=== PATIENT | male | born 1995 | race Caucasian/White ===

== ENCOUNTER 2019-06-21 01:36 | Observation (INO) ==
[2019-06-21] MEDS ORDERED: SODIUM CHLORIDE 0.9% 1000ML 2,000 ML IV ONE (01:50)
[2019-06-21] MEDS ORDERED: KETOROLAC 30 MG/ML VIAL IV STA (01:50)
[2019-06-21] MEDS ORDERED: ONDANSETRON INJ 2 MG/ML 2 ML VIAL IV STA (01:50)
[2019-06-21] MEDS ORDERED: DEXAMETHASONE SOD INJ 4 MG/ML VIAL IV STA (01:52)
[2019-06-21] MEDS ORDERED: DEXAMETHASONE **PF** INJ 10 MG/ML VIAL ONE (02:00)
[2019-06-21 02:14] LABS: Basophils # (auto) 0.03 K/uL (0-0.2); Basophils % (auto) 0.1 %; Eosinophils # (auto) 0.03 K/uL (0-0.5); Eosinophils % (auto) 0.1 %; Hematocrit (blood only) 40.9 % (42-52); Hemoglobin 14.3 g/dL (14.0-18.0); Immature Granulocytes # (auto) 0.09 K/uL (0.00-0.02); Immature Granulocytes % (auto) 0.4 %; Lymphocytes # (auto) 1.17 K/uL (1.2-3.4); Lymphocytes % (auto) 5.5 %; Mean Corpuscular Hemoglobin 30.2 pg (25-34); Mean Corpuscular Volume 86.3 fL (80-100); Mean Platelet Volume 9.3 fL (7.4-10.4); Monocytes # (auto) 1.34 K/uL (0.11-0.59); Monocytes % (auto) 6.3 %; Neutrophils # (auto) 18.62 K/uL (1.4-6.5); Neutrophils % (auto) 87.6 %; Platelet Count 268 K/uL (130-400); RDW Coefficient of Variation 13.7 % (11.5-14.5); RDW Standard Deviation 43.5 fL (36.4-46.3); Red Blood Count 4.74 M/uL (4.7-6.1); White Blood Count 21.28 K/uL (4.8-10.8)
[2019-06-21] MEDS ORDERED: ACETAMINOPHEN 500 MG TAB PO STA (02:16)
[2019-06-21 02:30] LABS: BUN Creatinine Ratio 13.2 (10-20); Calcium 8.8 mg/dl (8.5-10.1); Creatinine Clr Calc Pharmacy 128.5 ml/min; Est GFR (African American) 108.3; Est GFR (Non-African American) 93.4; Potassium 3.3 mmol/L (3.5-5.1)
[2019-06-21 02:58] LABS: Appearance Urine Clear (Clear); Bilirubin Urine Negative (Negative); Blood Urine Negative (Negative); Color Urine Dark Yellow; Glucose Urine UA Negative (Negative); Ketones Urine 1+ (Negative); Leukocyte Esterase Urine Negative (Negative); Nitrite Urine Negative (Negative); Protein Urine Negative (Negative); Specific Gravity Urine 1.036 (1.000-1.030); Urobilinogen Urine Negative (Negative)
[2019-06-21 03:03] LABS: C Reactive Protein 2.18 mg/dl (0-0.29)
[2019-06-21] MEDS ORDERED: SODIUM CHLORIDE 0.9% 1000ML 1,000 ML IV SCH (04:45)
--- NOTE | 2019-06-21 05:18 | History & Physical Report ---
Date of Service June 21, 2019 Assessment & Plan (1) Pharyngitis: Patient with acute onset sore throat, fever/chills/rigors. Posterior pharynx is erythematous and edematous on exam. Rapid strep is negative. Patient has had mono in the past. He was given Dexamethasone and Toradol in the ER which should help acute pain -Symptomatic treatment with Tylenol, IVF, lozenges -Check Monospot Present on Admission?: Yes (2) Viral syndrome: As above. Suspect acute viral pharyngitis -Follow cultures obtained in the ER -Symptomatic treatement as above Present on Admission?: Yes (3) Leukocytosis: Patient with significant leukocytosis, WBC=21.28 with neutrophil predominance and bands as well as elevated monocytes. Most likely acute reaction in setting of infection. No obvious bacterial source. -Symptomatic management as above -Patient should followup with PCP after discharge for repeat CBC F/E/N - NSS at 80mL/hr with 40mEq KCL, K repletion, regular diet Ppx - low risk for DVT Code - Full Dispo - Obs to medical floor History of Present Illness Chief Complaint: feeling ill Primary Care Provider: NO PCP Don Cuba is a 23yo C male with no significant past medical or surgical history presenting with ill feeling, rigors and sore throat. His symptoms began acutely around 15:00 yesterday 06/20/19 with a sore throat and feeling a little "off". He was travelling to [place] to see a show. He took Ibuprofen and DayQuil with minimal improvement. Symptoms progressed throughout the evening - patient could't focus, felt "hazy", developed chills and rigors. He also felt very tired, nausea with one episode of non-bloody/non-bilious emesis. He has a faint dry cough. Denies chest pain/palpitations/SOB/wheeze. Denies abdominal pain/diarrhea/constipation. Denies dysuria/flank pain. Denies rhinorrhea/ear pain. ER workup revealed a marked leukocytosis - WBC=21.28, neutrophil predominance with bands. Patient was to be discharged home, ER attending spoke with patient's mother in [place] who requested that her son be kept for observation as she did not feel comfortable with him going home. ER Course: Dexamethasone 10mg, Zofran 4mg, Tylenol 1000mg, NSS x 2L then at 125mL Allergies Allergy/AdvReac Type Severity Reaction Status Date / Time No Known Allergies Allergy Unverified 06/21/19 02:05 Home Medications Home Medications Medication Instructions Recorded Confirmed Type No Known Home Medications 06/21/19 06/21/19 History Past Med/Surg History Medical History No pertinent past medical history Surgical History No pertinent past surgical history Family History (Updated 06/21/19 @ 05:07 by Radha Yan DO) Other No significant family history Social History (Updated 06/21/19 @ 05:08 by Radha Yan DO) Feels Safe at Home: Yes Smoking Status: Current some day smoker Tobacco Type: e-cigarettes ; Hx Alcohol Use: Yes Alcohol Intake Frequency: Holidays/Special Occasions Hx Substance Use: No Review of Systems Review of Systems: All systems reviewed & are unremarkable except as noted in HPI & below +sore throat +Headache +blurry vision +cough Physical Exam Physical Exam: General: patient resting comfortably, NAD, non-toxic in appearance, AA&O x 4 Skin: warm, dry, intact, no rashes or lesions HEENT: NC/AT, PERRL, EOMI, anicteric sclera, conjunctiva without injection, external ear normal to inspection and nontender, TM pearly with good cone of light, no evidence of infection, no mastoid tenderness, nares patent, moist mucus membranes, dentition intact, posterior pharynx with erythema, tonsillar enlargement bilaterally, no exudates, neck supple, trachea midline, no LAD, no thyromegaly, no JVD Heart: +S1/S2, regular with significant respiratory variation, no m/r/g Lungs: equal air entry bilaterally, no rales/rhonchi/wheezes Abd: +BS, soft, NT/ND, no masses/organomegaly/ascites Ext: warm, 2+ pulses in UE/LE bilaterally, no clubbing/cyanosis or edema Neuro: nonfocal, patient AA&O x 4, speech intact, no facial droop, moving all extremities on command with equal strength 5/5 Results & Data Vital Signs (Past 12 Hours) Vital Signs Temp Pulse Pulse Resp BP BP Pulse Ox 06/21/19 04:32 38.0 C H 91 H 18 113/56 L 97 06/21/19 03:42 38.1 C H 96 H 20 107/50 L 97 06/21/19 02:10 39.5 C H 06/21/19 01:38 37.2 C 110 H 20 111/64 99 Laboratory Results Lab Results 06/21/19 06/21/19 06/21/19 Range/Units 02:01 02:01 02:02 WBC 21.28 H (4.8-10.8) K/uL RBC 4.74 (4.7-6.1) M/uL Hgb 14.3 (14.0-18.0) g/dL Hct 40.9 L (42-52) % MCV 86.3 (80-100) fL MCH 30.2 (25-34) pg MCHC 35.0 (32-36) g/dL RDW Std Deviation 43.5 (36.4-46.3) fL RDW Coeff of Liliya 13.7 (11.5-14.5) % Plt Count 268 (130-400) K/uL MPV 9.3 (7.4-10.4) fL Immature Gran % (Auto) 0.4 % Neut % (Auto) 87.6 % Lymph % (Auto) 5.5 % [place] % (Auto) 6.3 % Eos % (Auto) 0.1 % Baso % (Auto) 0.1 % Immature Gran # (Auto) 0.09 H (0.00-0.02) K/uL Neut # (Auto) 18.62 H (1.4-6.5) K/uL Lymph # (Auto) 1.17 L (1.2-3.4) K/uL [place] # (Auto) 1.34 H (0.11-0.59) K/uL Eos # (Auto) 0.03 (0-0.5) K/uL Baso # (Auto) 0.03 (0-0.2) K/uL Sodium 138 (136-145) mmol/L Potassium 3.3 L (3.5-5.1) mmol/L Chloride 106 (98-107) mmol/L Carbon Dioxide 28 (21-32) mmol/L Anion Gap 4.0 (3-11) BUN 15 (7-18) mg/dl Creatinine 1.12 (0.6-1.4) mg/dl Est Cr Clr Drug Dosing 128.5 ml/min Est GFR ( Amer) 108.3 Est GFR (Non-Af Amer) 93.4 BUN/Creatinine Ratio 13.2 (10-20) Glucose 120 H (70-99) mg/dl Lactate (0.4-2.0) mmol/L Calcium 8.8 (8.5-10.1) mg/dl C-Reactive Protein 2.18 H (0-0.29) mg/dl Procalcitonin (0-0.5) ng/ml Urine Color Urine Appearance (Clear) Urine pH (4.5-7.5) Ur Specific [place] (1.000-1.030) Urine Protein (Negative) Urine Glucose (UA) (Negative) Urine Ketones (Negative) Urine Blood (Negative) Urine Nitrite (Negative) Urine Bilirubin (Negative) Urine Urobilinogen (Negative) Ur Leukocyte Esterase (Negative) Influenza Type A Ag Neg for Influ A (Neg) Influenza Type B Ag Neg for Influ B (Neg) 06/21/19 06/21/19 06/21/19 Range/Units 02:27 02:52 03:47 WBC (4.8-10.8) K/uL RBC (4.7-6.1) M/uL Hgb (14.0-18.0) g/dL Hct (42-52) % MCV (80-100) fL MCH (25-34) pg MCHC (32-36) g/dL RDW Std Deviation (36.4-46.3) fL RDW Coeff of Liliya (11.5-14.5) % Plt Count (130-400) K/uL MPV (7.4-10.4) fL Immature Gran % (Auto) % Neut % (Auto) % Lymph % (Auto) % [place] % (Auto) % Eos % (Auto) % Baso % (Auto) % Immature Gran # (Auto) (0.00-0.02) K/uL Neut # (Auto) (1.4-6.5) K/uL Lymph # (Auto) (1.2-3.4) K/uL [place] # (Auto) (0.11-0.59) K/uL Eos # (Auto) (0-0.5) K/uL Baso # (Auto) (0-0.2) K/uL Sodium (136-145) mmol/L Potassium (3.5-5.1) mmol/L Chloride (98-107) mmol/L Carbon Dioxide (21-32) mmol/L Anion Gap (3-11) BUN (7-18) mg/dl Creatinine (0.6-1.4) mg/dl Est Cr Clr Drug Dosing ml/min Est GFR ( Amer) Est GFR (Non-Af Amer) BUN/Creatinine Ratio (10-20) Glucose (70-99) mg/dl Lactate 0.9 (0.4-2.0) mmol/L Calcium (8.5-10.1) mg/dl C-Reactive Protein (0-0.29) mg/dl Procalcitonin 0.19 (0-0.5) ng/ml Urine Color Dark Yellow Urine Appearance Clear (Clear) Urine pH 6.0 (4.5-7.5) Ur Specific [place] 1.036 H (1.000-1.030) Urine Protein Negative (Negative) Urine Glucose (UA) Negative (Negative) Urine Ketones 1+ H (Negative) Urine Blood Negative (Negative) Urine Nitrite Negative (Negative) Urine Bilirubin Negative (Negative) Urine Urobilinogen Negative (Negative) Ur Leukocyte Esterase Negative (Negative) Influenza Type A Ag (Neg) Influenza Type B Ag (Neg) Diagnostic Findings CXR - per my interpretation - no focal infiltrates, prominent hilar lymphadenopathy bilaterally Code Status & VTE Plan Code Status FULL VTE Prophylaxis Plan VTE Prophylaxis will be ordered: No Reason for no VTE drug order: Treatment not indicated Reason for no VTE mechanical prophylaxis: Treatment not indicated PG Care Time/CCT Total # of Minutes Spent Total Time Spent with Patient: Total time spent is greater than 50% in coordination of care (as documented) at patient's floor/unit and/or counseling patient: (1) Pharyngitis Pharyngitis/tonsillitis etiology: unspecified etiology Qualified Code(s): J02.9 - Acute pharyngitis, unspecified (2) Leukocytosis Leukocytosis type: unspecified Qualified Code(s): D72.829 - Elevated white blood cell count, unspecified
--- NOTE | 2019-06-21 05:34 | Emergency Department Note ---
Entered by Elida Akhtar acting as a scribe for Andrés Salazar MD ED Provider Note Name: CODI VIGIL Age: 23 Arrives Via: Family Vehicle Informant: Patient CC: body aches and nausea HPI: 23M arrives for evaluation of intermittent body aches and nausea that began 11 hours ago. The patient states that he began feeling sick while driving to [place] for a concert and it has become progressively worse. He reports a sore throat, body aches, fever, nausea, vomiting, and feeling like if I go to sleep I will . The patient notes he took Dayquil and ibuprofen with little relief but did have a beer at the concert. The patient denies a cough and any other symptoms. ROS: See above HPI for pertinent positives & negatives. A total of 10 systems reviewed and were otherwise negative. Past Medical History:No pertinent past medical history. Past Surgical History:No pertinent past surgical history. Family History:No pertinent past family history. Social History:See Below Home Medications:See Below Allergies:See Below Vitals:BP 111/64, HR 110, Resp 20, Temp 99.0F, O2 sat 99. Physical Exam: GENERAL: Patient is well appearing and in moderate distress. Shaking and dry heaving. EYES: No scleral icterus, unremarkable pupils. ENT: Mucous membranes dry, no nasal congestion Erythematous throat, no exudate. NECK: No masses appreciated, nomeningismus, trachea is midline. RESPIRATORY: No dyspnea. Clear to auscultation and equal bilaterally. No wheeze, no rhonchi. CARDIOVASCULAR: Tachycardic rate and rhythm.No murmurs, rubs, gallops appreciated. GASTROINTESTINAL: Abdomen soft, non-tender, no peritonitis.Bowel sounds positive.No masses appreciated. BACK: No midline tenderness, no CVA tenderness EXTREMITIES: Normal motion all extremities, no cyanosis, no edema. NEUROLOGIC: Alert and oriented, no acute motor or sensory deficits, no focal weakness, cranial nerves grossly intact. SKIN: No rash, no jaundice, no diaphoresis. ED Course: Prior Medical Record, Triage/Nursing Notes, Medications, Allergies reviewed by Me Vital Signs: reviewed and remarkable for fever, tachy Labs:Reviewed and remarkable for elevated WBC Interventions: saline lock, nss bolus 2 L IV, benadryl 50mg IV, zofran 4mg IV, toradol 30mg IV, decadron 10mg IV, Tylenol 1gm IV, NSS infusion Imaging:X ray results are stated below per my interpretation: Chest: 1 view: Perihilar congestion without lobar infiltrate, no effusion, nor mal cardiac border. Reassessments/Times: 0147: Past medical records reviewed. The patient was evaluated in room B08. A complete history and physical exam was performed. 0223: I reevaluated the patient and he is feeling better after medications. 0241: Long discussion with mother regarding finding. We will await further lab result. 0414: I checked on the patient and he is feeling better with a HR of 90 bpm and is sipping on Gatorade. 0430: reviewed with mother and patient and do not feel comfortable with discharge. HR jumping with sitting up. Dr Yan aware and will evaluate further. Blood pressure:Normal.No Referral necessary Disposition:Hospitalization Differentials:Differential includes viral illness, influenza, streptococcal pharyngitis, meningitis, pneumonia, sinusitis, UTI, pyelonephritis, otitis media. Medical Decision Makin yr old healthy male with acute febrile illness arrives with rigors and dry heaving. IV obtained, labs sent and meds given. Vast improvement in symptoms and tolerating PO without difficulty. Still febrile and somewhat tachy. CXR likely viral. flu negative. UA negative. WBC is quite elevated but procal not and crp only mildly elevated. Lactate normal. Blood cultures were sent given fever and wbc elevation. No clear evidence of bacterial infection. Suspect viral pharyngitis with stress response. After discussion with patient/mother will bring in for monitoring and further hydration. Impression: Viral Syndrome Pharyngitis Leukocytosis The scribe's documentation has been prepared under my direction and personally reviewed by me in its entirety. I confirm that the note above accurately reflects all work, treatment, procedures, and medical decision making performed by me. Andrés Salazar MD Impression & Plan Viral syndrome, Pharyngitis, Leukocytosis Past Med/Surg History Medical History No pertinent past medical history Surgical History No pertinent past surgical history Family History (Updated 06/21/19 @ 05:07 by Radha Yan DO) Other No significant family history Social History (Updated 06/21/19 @ 05:08 by Radha Yan DO) Feels Safe at Home: Yes Smoking Status: Current some day smoker Tobacco Type: e-cigarettes ; Hx Alcohol Use: Yes Alcohol Intake Frequency: Holidays/Special Occasions Hx Substance Use: No Results & Data Vital Signs Vital Signs - 24 hr 06/21/19 01:38 06/21/19 02:10 06/21/19 03:42 Temperature 37.2 C 39.5 C H 38.1 C H Temperature Source Oral Oral Oral Pulse Rate 110 H Pulse Rate [Finger] 96 H Respiratory Rate 20 20 Respiratory Effort / Characteristics Respiratory Depth Blood Pressure 111/64 Blood Pressure [Left Arm] 107/50 L Blood Pressure Mean 79 Blood Pressure Mean [Left Arm] 69 Blood Pressure Position [Left Arm] Pulse Oximetry 99 97 Oxygen Delivery Method Room Air Room Air Sepsis Recent Fever Within 48 Hours No Sepsis Action Taken by Nursing No Action Required 06/21/19 04:32 06/21/19 05:10 Temperature 38.0 C H Temperature Source Oral Pulse Rate Pulse Rate [Finger] 91 H 93 H Respiratory Rate 18 18 Respiratory Effort / Characteristics Non-Labored Spontaneous Respiratory Depth Normal Blood Pressure Blood Pressure [Left Arm] 113/56 L 117/60 Blood Pressure Mean Blood Pressure Mean [Left Arm] 75 79 Blood Pressure Position [Left Arm] Sitting Lying Pulse Oximetry 97 95 Oxygen Delivery Method Room Air Room Air Sepsis Recent Fever Within 48 Hours Sepsis Action Taken by Retirement Medications Current Medication List: was personally reviewed by me Laboratory Data Attestation: I reviewed the patient's lab results. Result diagrams: 06/21/19 02:01 06/21/19 02:01 Lab Results 06/21/19 06/21/19 06/21/19 Range/Units 02:01 02:01 02:02 WBC 21.28 H (4.8-10.8) K/uL RBC 4.74 (4.7-6.1) M/uL Hgb 14.3 (14.0-18.0) g/dL Hct 40.9 L (42-52) % MCV 86.3 (80-100) fL MCH 30.2 (25-34) pg MCHC 35.0 (32-36) g/dL RDW Std Deviation 43.5 (36.4-46.3) fL RDW Coeff of Liliya 13.7 (11.5-14.5) % Plt Count 268 (130-400) K/uL MPV 9.3 (7.4-10.4) fL Immature Gran % (Auto) 0.4 % Neut % (Auto) 87.6 % Lymph % (Auto) 5.5 % [place] % (Auto) 6.3 % Eos % (Auto) 0.1 % Baso % (Auto) 0.1 % Immature Gran # (Auto) 0.09 H (0.00-0.02) K/uL Neut # (Auto) 18.62 H (1.4-6.5) K/uL Lymph # (Auto) 1.17 L (1.2-3.4) K/uL [place] # (Auto) 1.34 H (0.11-0.59) K/uL Eos # (Auto) 0.03 (0-0.5) K/uL Baso # (Auto) 0.03 (0-0.2) K/uL Sodium 138 (136-145) mmol/L Potassium 3.3 L (3.5-5.1) mmol/L Chloride 106 (98-107) mmol/L Carbon Dioxide 28 (21-32) mmol/L Anion Gap 4.0 (3-11) BUN 15 (7-18) mg/dl Creatinine 1.12 (0.6-1.4) mg/dl Est Cr Clr Drug Dosing 128.5 ml/min Est GFR ( Amer) 108.3 Est GFR (Non-Af Amer) 93.4 BUN/Creatinine Ratio 13.2 (10-20) Glucose 120 H (70-99) mg/dl Lactate (0.4-2.0) mmol/L Calcium 8.8 (8.5-10.1) mg/dl C-Reactive Protein 2.18 H (0-0.29) mg/dl Procalcitonin (0-0.5) ng/ml Urine Color Urine Appearance (Clear) Urine pH (4.5-7.5) Ur Specific [place] (1.000-1.030) Urine Protein (Negative) Urine Glucose (UA) (Negative) Urine Ketones (Negative) Urine Blood (Negative) Urine Nitrite (Negative) Urine Bilirubin (Negative) Urine Urobilinogen (Negative) Ur Leukocyte Esterase (Negative) Influenza Type A Ag Neg for Influ A (Neg) Influenza Type B Ag Neg for Influ B (Neg) 06/21/19 06/21/19 06/21/19 Range/Units 02:27 02:52 03:47 WBC (4.8-10.8) K/uL RBC (4.7-6.1) M/uL Hgb (14.0-18.0) g/dL Hct (42-52) % MCV (80-100) fL MCH (25-34) pg MCHC (32-36) g/dL RDW Std Deviation (36.4-46.3) fL RDW Coeff of Liliya (11.5-14.5) % Plt Count (130-400) K/uL MPV (7.4-10.4) fL Immature Gran % (Auto) % Neut % (Auto) % Lymph % (Auto) % [place] % (Auto) % Eos % (Auto) % Baso % (Auto) % Immature Gran # (Auto) (0.00-0.02) K/uL Neut # (Auto) (1.4-6.5) K/uL Lymph # (Auto) (1.2-3.4) K/uL [place] # (Auto) (0.11-0.59) K/uL Eos # (Auto) (0-0.5) K/uL Baso # (Auto) (0-0.2) K/uL Sodium (136-145) mmol/L Potassium (3.5-5.1) mmol/L Chloride (98-107) mmol/L Carbon Dioxide (21-32) mmol/L Anion Gap (3-11) BUN (7-18) mg/dl Creatinine (0.6-1.4) mg/dl Est Cr Clr Drug Dosing ml/min Est GFR ( Amer) Est GFR (Non-Af Amer) BUN/Creatinine Ratio (10-20) Glucose (70-99) mg/dl Lactate 0.9 (0.4-2.0) mmol/L Calcium (8.5-10.1) mg/dl C-Reactive Protein (0-0.29) mg/dl Procalcitonin 0.19 (0-0.5) ng/ml Urine Color Dark Yellow Urine Appearance Clear (Clear) Urine pH 6.0 (4.5-7.5) Ur Specific [place] 1.036 H (1.000-1.030) Urine Protein Negative (Negative) Urine Glucose (UA) Negative (Negative) Urine Ketones 1+ H (Negative) Urine Blood Negative (Negative) Urine Nitrite Negative (Negative) Urine Bilirubin Negative (Negative) Urine Urobilinogen Negative (Negative) Ur Leukocyte Esterase Negative (Negative) Influenza Type A Ag (Neg) Influenza Type B Ag (Neg) Administered Medications Sodium Chloride (Nss 1000ml) 1,000 mls @ 125 mls/hr IV .Q8H HALLE Stop: 07/21/19 04:44 Last Admin: 06/21/19 05:10 Dose: 125 mls/hr Documented by: [id number] Discontinued Medications Acetaminophen (Tylenol) 1,000 mg PO NOW STA Stop: 06/21/19 02:17 Last Admin: 06/21/19 02:24 Dose: 1,000 mg Documented by: [id number] Dexamethasone (Decadron) 10 mg IV NOW STA Stop: 06/21/19 01:53 Last Admin: 06/21/19 02:06 Dose: Not Given Documented by: [id number] Dexamethasone Sodium Phosphate (Decadron Pf) Confirm Administered Dose 10 mg .ROUTE .STK-MED ONE Stop: 06/21/19 02:01 Last Admin: 06/21/19 02:06 Dose: 10 mg Documented by: [id number] Sodium Chloride (Nss 1000ml) 2,000 mls @ 999 mls/hr IV .Q2H1M ONE Stop: 06/21/19 03:50 Last Infusion: 06/21/19 04:43 Dose: 0 mls/hr Documented by: [id number] Admin: 06/21/19 02:05 Dose: 999 mls/hr Documented by: [id number] Ketorolac Tromethamine (Toradol) 30 mg IV NOW STA Stop: 06/21/19 01:51 Last Admin: 06/21/19 02:06 Dose: 30 mg Documented by: [id number] Ondansetron HCl (Zofran) 4 mg IV NOW STA Stop: 06/21/19 01:51 Last Admin: 06/21/19 02:06 Dose: 4 mg Documented by: [id number] Blood Pressure Blood Pressure Findings: Normal blood pressure Discharge Plan Visit Data Chief Complaint: Fever Stated Complaint: FEVER ED Provider: Andrés Salazar Discharge Problem: Viral syndrome, Pharyngitis, Leukocytosis Patient Disposition: Being Evaluated by Hospitalist Forms Stand Alone Forms: [email or web address] Prescriptions Prescriptions: No Action No Known Home Medications RF: 0 Referrals Referrals: PCP,NO [Primary Care Provider] - Discharge Problem: Pharyngitis Qualifiers: Pharyngitis/tonsillitis etiology: unspecified etiology Qualified Code(s): J02.9 - Acute pharyngitis, unspecified Leukocytosis Qualifiers: Leukocytosis type: unspecified Qualified Code(s): D72.829 - Elevated white blood cell count, unspecified The scribe's documentation has been prepared under my direction and personally r eviewed by me in its entirety. I confirm that the note above accurately reflects all work, treatment, procedures, and medical decision making performed by me.
[2019-06-21] MEDS ORDERED: BENZOCAINE/MENTHOL 18 LOZ/1 BOX MT PRN (06:11)
[2019-06-21] MEDS ORDERED: ONDANSETRON INJ 2 MG/ML 2 ML VIAL IV PRN (06:11)
[2019-06-21] MEDS ORDERED: POTASSIUM CHLORIDE 40 MEQ in SODIUM CHLORIDE 0.9% 1000ML 1,000 ML IV SCH (06:30)
--- NOTE | 2019-06-21 06:50 | XRay Report ---
XR chest 1V portable CLINICAL HISTORY: sepsis COMPARISON STUDY: No previous studies for comparison. FINDINGS: The cardiac and mediastinal contours are normal. There is no evidence of focal pulmonary co nsolidation. There is no evidence of failure. No pleural effusions are visualized.[ IMPRESSION: No active disease in the chest. ACT 112: Negative or not required by law. Electronically signed by: Terry Diaz M.D. 06/21/2019 6:49 AM
[2019-06-21 09:34] LABS: Hematocrit (blood only) 38.8 % (42-52); Hemoglobin 13.3 g/dL (14.0-18.0); Mean Corpuscular Hemoglobin 29.8 pg (25-34); Mean Corpuscular Hgb Conc 34.3 g/dL (32-36); Mean Corpuscular Volume 86.8 fL (80-100); Mean Platelet Volume 9.5 fL (7.4-10.4); Platelet Count 230 K/uL (130-400); RDW Coefficient of Variation 13.9 % (11.5-14.5); RDW Standard Deviation 44.2 fL (36.4-46.3); Red Blood Count 4.47 M/uL (4.7-6.1); White Blood Count 26.22 K/uL (4.8-10.8)
[2019-06-21 10:05] LABS: BUN Creatinine Ratio 12.6 (10-20); Calcium 8.8 mg/dl (8.5-10.1); Creatinine Clr Calc Pharmacy 156.4 ml/min; Est GFR (African American) 137.3; Est GFR (Non-African American) 118.5; Potassium 3.7 mmol/L (3.5-5.1)
[2019-06-21 11:56] LABS: Estimated Average Glucose 103 mg/dl; Hemoglobin A1C 5.2 % (4.5-5.6)
--- NOTE | 2019-06-21 14:56 | Hospitalist Progress Note ---
Date of Service June 21, 2019 Assessment & Plan (1) Pharyngitis: Patient with acute onset sore throat, fever/chills/rigors. Posterior pharynx is erythematous and edematous on exam. Rapid strep is negative. Patient has had mono in the past. He was given Dexamethasone and Toradol in the ER which should help acute pain -Symptomatic treatment with Tylenol, IVF, lozenges -Check Monospot (2) Viral syndrome: As above. Suspect acute viral pharyngitis -Follow cultures obtained in the ER -Symptomatic treatement as above (3) Leukocytosis: Patient with significant leukocytosis, WBC=21.28 with neutrophil predominance and bands as well as elevated monocytes. Most likely acute reaction in setting of infection. No obvious bacterial source. -Symptomatic management as above -Patient should followup with PCP after discharge for repeat CBC F/E/N - NSS at 80mL/hr with 40mEq KCL, K repletion, regular diet Ppx - low risk for DVT Code - Full Dispo - Obs to medical floor Results & Data Vital Signs (Past 12 Hours) Vital Signs Temp Pulse Resp BP BP Pulse Ox 06/21/19 07:03 36.5 C 67 18 117/68 98 06/21/19 06:12 37.1 C 76 16 100/64 98 06/21/19 05:59 37.1 C 76 16 100/64 98 06/21/19 05:10 93 H 18 117/60 95 06/21/19 04:32 38.0 C H 91 H 18 113/56 L 97 06/21/19 03:42 38.1 C H 96 H 20 107/50 L 97 PG Care Time/CCT Total # of Minutes Spent Total Time Spent with Patient: Total time spent is greater than 50% in coordination of care (as documented) at patient's floor/unit and/or counseling patient: (1) Pharyngitis Pharyngitis/tonsillitis etiology: unspecified etiology Qualified Code(s): J02.9 - Acute pharyngitis, unspecified (2) Leukocytosis Leukocytosis type: unspecified Qualified Code(s): D72.829 - Elevated white blood cell count, unspecified
--- NOTE | 2019-06-21 15:46 | History & Physical Bridge Note ---
Date of Service June 21, 2019 History & Physical Bridge Note I have examined the patient, reviewed the History & Physical and in the interval since the performance of the History & Physical I have noted the following changes of clinical significance: Mr. Cuba is feeling better, afebrile since about 0400, no longer tachycardic. Eating and drinking WBCs continue to be elevated at 26 - likely partially due to dexamethasone administration Patient did mention that he has been feeling ill with cold symptoms since June 05 and then suddenly became much more acutely ill last evening. He denies any sinusitis type symptoms, no sign of pneumonia. Monospot negative, rapid strep negative, awaiting results of strep culture and BC Will hang on to Mr. Cuba overnight and if he is still feeling better tomorrow morning and WBCs are improving, will discharge to home.
[2019-06-22] MEDS: ACETAMINOPHEN 325 MG TAB PO PRN ×2 (00:38→09:53)
[2019-06-22 07:35] LABS: Hematocrit (blood only) 37.3 % (42-52); Hemoglobin 12.6 g/dL (14.0-18.0); Mean Corpuscular Hemoglobin 29.4 pg (25-34); Mean Corpuscular Hgb Conc 33.8 g/dL (32-36); Mean Corpuscular Volume 87.1 fL (80-100); Mean Platelet Volume 9.7 fL (7.4-10.4); Platelet Count 262 K/uL (130-400); RDW Coefficient of Variation 14.3 % (11.5-14.5); RDW Standard Deviation 45.7 fL (36.4-46.3); Red Blood Count 4.28 M/uL (4.7-6.1); White Blood Count 19.03 K/uL (4.8-10.8)
[2019-06-22 07:37] VITALS: PULSE 57; TEMP 97.7; O2SAT 98
--- NOTE | 2019-06-22 11:22 | Discharge Summary ---
Date of Service June 22, 2019 Admission HPI Per Admitting Provider Don Cuba is a 23yo C male with no significant past medical or surgical history presenting with ill feeling, rigors and sore throat. His symptoms began acutely around 15:00 yesterday 06/20/19 with a sore throat and feeling a little "off". He was travelling to [place] to see a show. He took Ibuprofen and DayQuil with minimal improvement. Symptoms progressed throughout the evening - patient could't focus, felt "hazy", developed chills and rigors. He also felt very tired, nausea with one episode of non-bloody/non-bilious emesis. He has a faint dry cough. Denies chest pain/palpitations/SOB/wheeze. Denies abdominal pain/diarrhea/constipation. Denies dysuria/flank pain. Denies rhinorrhea/ear pain. ER workup revealed a marked leukocytosis - WBC=21.28, neutrophil predominance with bands. Patient was to be discharged home, ER attending spoke with patient's mother in [place] who requested that her son be kept for observation as she did not feel comfortable with him going home. ER Course: Dexamethasone 10mg, Zofran 4mg, Tylenol 1000mg, NSS x 2L then at 125mL Principal Diagnosis Pharyngitis Discharge Exam Constitutional WD/WN, vitals as above ENMT Throat: + tonsil abnormality (+3 erythematous tonsils ) Respiratory normal respiratory effort, lungs clear to auscultation Cardiovascular RRR, no murmur, no edema Gastrointestinal (Abdomen) Inspection/Auscultation: abdomen normal to inspection and normal bowel sounds; abdomen not distended Percussion/Palpation: abdomen soft; abdomen nontender Musculoskeletal no cyanosis or clubbing, extremities motor strength 5/5 Skin no rashes, warm and dry Neurologic moves all extremities and awake Psychiatric A+Ox3, euthymic affect Discharge Data Allergies Allergy/AdvReac Type Severity Reaction Status Date / Time No Known Allergies Allergy Unverified 06/21/19 02:05 Consultations 06/21/19 04:39 ED Decision to Admit Stat Hospital Course (1) Pharyngitis: Patient with acute onset sore throat, fever/chills/rigors. Posterior pharynx is erythematous and edematous on exam. Rapid strep is negative. Monospot negative. -Symptomatic treatment with Tylenol, IVF, lozenges provided - today feeling much better, some mild pain, able to swallow food and fluids with some tenderness in the throat which is better than at admission - Afebrile the last 24 hours (2) Viral syndrome: As above. Suspect acute viral pharyngitis - BC ngtd, strep culture pending -Symptomatic treatment as above (3) Leukocytosis: Patient with significant leukocytosis, WBC=21.28 on admission and peaked at 26 now decreased to 19, some of the elevation may have been due to dexamethasone given in ED. Initial leukocytosis most likely acute reaction in setting of infection. No obvious bacterial source. - Repeat CBC in 2 days (4) Hyperglycemia: Blood sugar yesterday 210- A1c was 5.2. This is likely an acute reaction to viral illness as well as dexamethasone administration in ED (5) Anemia: Blood count decreased from 14.3 to 12.6 over the last 2 days. No sign or symptoms of bleeding - likely due to the amount of fluids causing a dilutional effect. No BM while inpatient, no obvious s/s of bleeding - CBC in 2 days Total Time Total Time Spent Total Time Spent (In Minutes): greater than 30 minutes Discharge Plan Discharge Items Patient Disposition: Home - Self-Care Reason For Visit: RIGORS,PHARYNGITIS Discharge Diagnosis: Pharyngitis Activity: Resume your previous activity Activity Comment: gradually as tolerated Non-emergency contact: Primary Care Provider Call non-emergency contact if: you have any medication questions, your symptoms worsen and you have a fever Follow-up/Referrals: PCP,NO [Primary Care Provider] - Diet: Regular Ambulatory Orders: Complete Blood Count no Diff (Routine) Timeframe: 2 Days Location: Determined by Patient Ordered By: Nohemi Ma Attending Provider Instructions: (1) Pharyngitis (sore throat): Your rapid strep test and monospot were both negative. Blood cultures are negative thus far. Your strep culture is still pending. We will call you if this comes back positive. This most likely represents a viral illness that will continue to improve on its own. Please call your doctor or return to the emergency department if your fever returns or if you are having increasing difficulty swallowing. You can take Tylenol or ibuprofen for pain. Do not exceed 3,000 mg per 24 hours of Tylenol. (2) Leukocytosis: On arrival to the emergency department your white blood cell count was 21.28 and sunny to 26 likely at least partially due to dexamethasone administration in the emergency department. This medication was given to help reduce pain and swelling in your throat. The initial increase in your white blood cell count was most likely an acute reaction in setting of infection. There is no obvious bacterial source. WBCs today are 19 - Please have your blood work drawn in 2 days (3) Anemia Your blood count decreased from 14.3 to 12.6 while you were here. As you do not have any sign or symptoms of bleeding, this is likely due to the amount of fluids you received causing a dilutional effect. - Please have your blood drawn in 2 days to check that this is stable - Return to the emergency department if you are having black or tarry stools or rosie blood in your stool or urine (4) Hyperglycemia (high blood sugar) Blood sugar yesterday around 2100 - A1c was 5.2. Your A1c is an indicator of your average blood sugars over a 3 month period. 5.2 is within normal limits for this test indicating that you are not having elevated sugars normally. This is likely an acute reaction to viral illness as well as dexamethasone administrati on in ED Pending Studies at Discharge: Yes Studies:: Strep culture Stand-Alone Forms: My [facility], Work/School Release (Inpt), Smoking Cessation Medications and DC Order Prescriptions: No Action No Known Home Medications RF: 0 Discharge Orders: Discharge Order (Routine); Ordered 06/22/19 Ordered By: Nohemi Joe Admission Data Admit Date/Time: 06/21/19 05:00 Attending Provider: Fabrizio Nolen Admit Provider: Radha Yan Primary Care Provider: PCP,NO Other Providers: Fabrizio Nolen Other Interventions: Discharge Summary Assessment (RN) Last Done: 06/22/19 11:56 DC Date/Time DO NOT enter until pt leaves facility: 06/22/19 12:55 Supervising Physician Co-Signing Physician Notes I supervised Nohemi Joe NP on this patient's care. I examined the patient today independently of her. I discussed the plan of care with her with the plan being as written in her note except for any following changes/exceptions: None. No major concerns today. Throat is feeling better. Overall, he is feeling better. Will follow up with PCP this week in [place].
[2019-06-22 11:57] VITALS: BP 100/64
== END 2019-06-22 12:55 | disposition home or self-care (01) ==
LOC: ED 01:36 → 3N 01:36 → SUATTDRO 05:00 → 3N 05:29